=== PATIENT | male | born 1980 | race Caucasian/White ===

== ENCOUNTER → 2021-01-22 | Outpatient (CLI) | payer OTHER ==
[~2021-01-22] MED LIST: KEFLEX500 MG PO; UNICOMPLEX M TA1 TA1 PO
== END ==
LOC: SJCVCIMAG 07:55
PROVIDERS: ATTEND Internal Medicine
DX: I11.9 Hypertensive heart disease without heart failure (principal); Z86.16 Personal history of COVID-19; Z79.899 Other long term (current) drug therapy